=== PATIENT | female | born 1955 | race Caucasian/White ===

== ENCOUNTER 2016-09-27 17:12 | Emergency (ER) | payer OTHER ==
[~2016-09-27] VITALS: Ht 149.9 cm; Wt 89.0 kg
[~2016-09-27 17:12] MED LIST: ASPI-664 PO; ATEN-51 PO; CIPR500T4 PO; GLIP1TAB5 PO; HYDR-3498 PO; HYDR-762 PO; IBUP-1542 PO; LEVO75TA65 PO; LOSA50TA6 PO; METF500T4 PO; METR500T PO; NAPR-260 PO; OMEP20CA16 PO; ONDA4TAB35 PO; SIMV10TA PO; VALS1TAB64 PO
[2016-09-27 17:16] VITALS: Ht 149.9 cm; Wt 89.0 kg
[2016-09-27] MEDS ORDERED: morphine 4 MG/ML VIAL IV STA (19:19)
[2016-09-27] MEDS ORDERED: SOD CHLORIDE 0.9% 1,000 ML IV STA (19:19)
[2016-09-27] MEDS ORDERED: ONDANSETRON 4 MG INJ IV STA (19:19)
[2016-09-27 19:31] LABS: ADD UMIC YES; URINE BILIRUBIN (Dip) NEGATIVE (NEGATIVE); URINE BLOOD (Dip) NEGATIVE (NEGATIVE); URINE COLOR YELLOW (YELLOW); URINE GLUCOSE (Dip) NEGATIVE (NEGATIVE); URINE KETONES (Dip) TRACE (NEGATIVE); URINE LEUKOCYTE ESTERASE (Dip) TRACE (NEGATIVE); URINE NITRITE (Dip) NEGATIVE (NEGATIVE); URINE TOTAL PROTEIN (Dip) NEGATIVE (NEGATIVE); URINE UROBILINOGEN (Dip) 0.2 E.U./dL (0.1-1.0)
[2016-09-27 19:40] LABS: ADD SCAN DIFF NO
[2016-09-27 19:42] LABS: BASOPHILS % 0.4 % (0.0-2.0); EOSINOPHILS # 0.2 10^3/ul (0.0-0.5); EOSINOPHILS % 2.3 % (0.0-7.0); HEMATOCRIT 42.5 % (37.0-47.0); HEMOGLOBIN 13.8 g/dl (12.0-16.0); LYMPHOCYTES # 2.7 10^3/ul (0.8-2.9); MEAN CORPUSCULAR HEMOGLOBIN 27.4 pg (29.0-33.0); MEAN CORPUSCULAR HGB CONC 32.5 g/dl (32.0-37.0); MEAN CORPUSCULAR VOLUME 84.3 fl (82.0-101.0); MONOCYTE # 0.5 10^3/ul (0.3-0.9); MONOCYTES % 6.7 % (0.0-11.0); NEUTROPHILS % 54.5 % (39.0-77.0); PLATELET COUNT 242 10^3/UL (140-415); RED BLOOD COUNT 5.04 10^6/ul (4.20-5.40); RED CELL DISTRIBUTION WIDTH 14.1 % (11.5-14.5); WHITE BLOOD COUNT 7.4 10^3/ul (4.8-10.8)
[2016-09-27] MEDS ORDERED: LEVO125T75 PO (19:51)
[2016-09-27 19:53] LABS: ALBUMIN 4.4 g/dl (3.3-4.9); POTASSIUM 4.2 mmol/L (3.5-5.1)
[2016-09-27] MEDS ORDERED: TRIA1CAP PO (19:53)
[2016-09-27] MEDS ORDERED: OXYB5TAB7 PO (19:54)
[2016-09-27 19:55] LABS: CREATININE 0.74 mg/dl (0.44-1.00)
[2016-09-27 19:56] LABS: ALBUMIN/GLOBULIN RATIO 1.15; BILIRUBIN,INDIRECT 0.8 mg/dl (0-1.1); BILIRUBIN,TOTAL 0.8 mg/dl (0.2-1.3); CALCIUM 9.4 mg/dl (8.4-10.2); TOTAL PROTEIN 8.2 g/dl (6.1-8.1)
[2016-09-27] MEDS ORDERED: LOSA50TA6 PO (19:56)
[2016-09-27 20:01] LABS: MUCUS,URINE MODERATE
[2016-09-27 20:02] LABS: BACTERIA,URINE FEW; SQUAMOUS EPITHELIAL CELL,UR MANY; URINE RBCS 0-2 /HPF (0)
--- NOTE | 2016-09-27 20:27 | RADRPT ---
PROCEDURE: CT abdomen and pelvis without contrast. CLINICAL INDICATION: Abdominal pain, diarrhea, nausea and vomiting since 09/24/2016 TECHNIQUE: CT scan of the abdomen and pelvis without contrast was performed. Sagittal and coronal reformatted images were obtained from the axial source images. CTDI = 18.36 mGy; DLP = 1009.90 mGy- cm COMPARISON: CT abdomen and pelvis 11/10/2015 FINDINGS: Visualized lower thorax: The lung bases are clear. There is no evidence for pleural effusion. Liver, gallbladder, pancreas and spleen: Mild fatty deposition of the liver is again seen with pres erved liver contour. Hepatomegaly of 21 cm greatest dimension is demonstrated. There is no evidenc e for a liver mass or ductal dilatation. Cholecystectomy clips are again noted. No common bile norma t abnormality is demonstrated. The pancreas is unremarkable. The spleen is normal in size. Adrenal glands and genitourinary system: The adrenal glands are normal bilaterally. The kidneys are normal and size, contour and attenuation with no evidence for masses, calculi or hydronephrosis. T he ureters are unremarkable. No urinary bladder abnormality is demonstrated. The uterus and adnexa are grossly normal for the patient's age. There is no evidence of free fluid in the cul-de-sac. Gastrointestinal system: The stomach is normal in caliber with no abnormality of significance. The small bowel is normal in caliber with no ileus, obstruction or wall thickening. The appendix and s urrounding fat are within the limits of normal. Some liquid stool is present throughout the colon c orrelate with the history of diarrhea but there is no evidence of colonic wall thickening. There is no evidence for colitis or diverticulitis. Peritoneum, retroperitoneum, lymph nodes and vessels: The abdominal aorta is normal in caliber. The re is no evidence for atherosclerotic calcification. The inferior vena cava is unremarkable. Multip le prominent small bowel mesenteric lymph nodes are similar to the previous examination the largest 1.2 cm in greatest dimension with diffuse stranding of the small bowel mesenteric fat. Scattered me senteric lymphadenopathy is similar to the previous exam with some small sub centimeter left retrope ritoneal lymph nodes. The pattern is similar to the previous exam. There is no ascites. No pneumop eritoneum is present Osseous structures and musculoskeletal findings: There is no fracture, lytic or blastic lesion. Deg enerative disk disease at L5-S1 is again noted No muscular abnormality or soft tissue pathology is p resent. RPTAT:HJJR IMPRESSION: 1. Stranding of the small bowel mesentery with multiple enlarged mesenteric and left retroperitoneal lymph nodes is consistent with mesenteric panniculitis and adenitis the pattern similar to the prev ious study of 11/10/2015. 2. Liquid stool in the colon correlates with the provided history of diarrhea but there is no wall thickening to suggest colitis or enteritis. 3. Stable hepatomegaly and hepatic steatosis. 4. Cholecystectomy changes are again seen. 5. Degenerative disk disease at L5-S1 is again noted. Physician Rama Date Time Electronically viewed and signed by Physician Rama on 09/27/2016 20:26 JR/
[2016-09-27] MEDS ORDERED: HYDR-902 PO (20:43)
[2016-09-27] MEDS ORDERED: ONDA4TAB14 PO (20:43)
--- NOTE | 2016-09-27 22:17 | ERD ---
ER Documentation Chief Complaint Date/Time DATE: 09/27/16 TIME: 22:16 Chief Complaint ABDOMINAL PAIN WITH NAUSEA/VOMITING/DIARRHEA SINCE TUESDAY HPI Patient is a 52-year-old female with hypertension and diabetes who presents with abdominal pain. The patient has had abdominal pain for the past 4 days. Patient tried Pepto-Bismol as well as Mylanta and omeprazole. She has had nausea but no vomiting. She did have diarrhea. The patient has had no fevers. The patient says "I just do not feel well". She felt like she was having noises in her stomach and felt bloated. She has not called her primary doctor as of yet. Her primary doctor is Dr. Cosme Seo. ROS All systems reviewed and are negative except as per history of present illness. Medications Home Meds Active Scripts Ondansetron (Ondansetron Odt) 4 Mg Tab.rapdis, 4 MG PO Q6H Y for NAUSEA AND/OR VOMITING, #30 TAB Prov:TWAN MARIE MD 09/27/16 Hydrocodone/Acetaminophen (Pennock 10-325 Tablet) 1 Each Tablet, 1 TAB PO Q6H Y for PAIN, #7 TAB Prov:TWAN MARIE MD 09/27/16 Naproxen* (Naprosyn*) 500 Mg Tablet, 500 MG PO BID Y for PAIN AND/OR INFLAMMATION, #20 TAB Prov:SYL CHUA DO 07/11/15 Reported Medications Losartan Potassium* (Losartan Potassium*) 50 Mg Tablet, 50 MG PO DAILY, TAB 09/27/16 Oxybutynin Chloride* (Ditropan*) 5 Mg Tab, 5 MG PO DAILY, TAB 09/27/16 Triamterene/Hydrochlorothiazid (Dyazide 37.5-25 Capsule) 1 Each Capsule, 0.5 EACH PO DAILY, CAP TAKE 1/2 TAB 09/27/16 Levothyroxine Sodium* (Levothyroxine Sodium*) 125 Mcg Tablet, 125 MCG PO BEFORE BREAKFAST, #30 TAB 09/27/16 Simvastatin* (Zocor*) 10 Mg Tablet, 10 MG PO QHS, #30 TAB 11/10/15 Metformin* (Glucophage*) 500 Mg Tab, 500 MG PO WITH LUNCH DINNER, #60 TAB 11/10/15 Omeprazole* (Omeprazole*) 20 Mg Capsule.dr, 20 MG PO DAILY 10/06/11 Discontinued Reported Medications Losartan Potassium* (Losartan Potassium*) 50 Mg Tablet, 50 MG PO DAILY, TAB 11/10/15 Levothyroxine Sodium* (Levoxyl*) 75 Mcg Tablet, 75 MCG PO AC BREAKFAST, TAB 12/04/14 Atenolol* (Atenolol*) 25 Mg Tablet, 25 MG PO DAILY, TAB 12/04/14 Aspirin (Low Dose Aspirin) 81 Mg Tablet.dr, 81 MG PO DAILY 12/04/14 Glipizide-Metformin (Glipizide-Metformin) 2.5-500 Tab, 1 TAB PO BID, TAB 12/04/14 Valsartan-Hydrochlorothiazide (Diovan HCT) 160-25 Mg Tablet, 1 TAB PO DAILY, TAB 12/04/14 Discontinued Scripts Hydrocodone Bit-Acetaminophen* (Pennock*) 10-325 Mg Tablet, 1 TAB PO Q6 Y for PAIN , #10 TAB Prov:ISAAC RALPH MD 11/10/15 Ibuprofen* (Motrin*) 600 Mg Tab, 600 MG PO Q6H Y for PAIN AND OR ELEVATED TEMP, #20 TAB Prov:ISAAC RAPLH MD 11/10/15 Metronidazole* (Flagyl*) 500 Mg Tablet, 500 MG PO TID for 10 Days, TAB Prov:ISAAC RALPH MD 11/10/15 Ciprofloxacin Hcl* (Ciprofloxacin Hcl*) 500 Mg Tablet, 500 MG PO BID for 10 Days , TAB Prov:ISAAC RALPH MD 11/10/15 Hydrocodone Bit-Acetaminophen* (Pennock*) 5-325 Mg Tab, 1 TAB PO Q6 Y for PAIN, # 10 TAB Prov:SYL CHUA DO 07/11/15 Ondansetron Hcl* (Zofran* ODT) 4 mg -ODT Tab.disper, 4 MG PO Q6 Y for NAUSEA AND /OR VOMITING, #20 TAB Prov:NORA GARZA 06/16/15 Allergies Allergies: Coded Allergies: No Known Allergy (Unverified , 09/27/16) PMhx/Soc Anesthesia Reaction: No Hx Neurological Disorder: No Hx Respiratory Disorders: No Hx Cardiac Disorders: Yes (htn hld) Hx Psychiatric Problems: No Hx Miscellaneous Medical Probl: Yes (thyroid, dm) Hx Alcohol Use: No Hx Substance Use: No Hx Tobacco Use: No Smoking Status: Never smoker FmHx Family History: diabetes Physical Exam Vitals Vital Signs Date Time Temp Pulse Resp B/P Pulse Ox O2 Delivery O2 Flow Rate FiO2 09/27/16 19:21 97.8 80 18 148/83 97 Room Air 09/27/16 17:16 98.6 94 18 158/91 96 Physical Exam Const: Mild distress Head: Atraumatic Eyes: Normal Conjunctiva ENT: Normal External Ears, Nose and Mouth. Neck: Full range of motion..~ No meningismus. Resp: Clear to auscultation bilaterally Cardio: Regular rate and rhythm, no murmurs Abd: Soft, diffuse tenderness to palpation without rebound or guarding Skin: No petechiae or rashes Back: No midline or flank tenderness Ext: No cyanosis, or edema Neur: Awake and alert Psych: Normal Mood and Affect Result Diagram: 09/27/16193309/27/161933 Results 24 hrs Laboratory Tests Test 09/27/16 19:02 09/27/16 19:34 Urine Color YELLOW Urine Clarity SLIGHTLY CLOUDY Urine pH 5.5 Urine Specific Wall 1.025 Urine Ketones TRACE Urine Nitrite NEGATIVE Urine Bilirubin NEGATIVE Urine Urobilinogen 0.2 E.U./dL Urine Leukocyte Esterase TRACE Urine Microscopic RBC 0-2/HPF Urine Microscopic WBC 2-5/HPF Urine Squamous Epithelial Cells MANY Urine Bacteria FEW Urine Mucus MODERATE Urine Hemoglobin NEGATIVE Urine Glucose NEGATIVE% Urine Total Protein NEGATIVE White Blood Count 7.410^3/ul Red Blood Count 5.0410^6/ul Hemoglobin 13.8g/dl Hematocrit 42.5% Mean Corpuscular Volume 84.3fl Mean Corpuscular Hemoglobin 27.4pg Mean Corpuscular Hemoglobin Concent 32.5g/dl Red Cell Distribution Width 14.1% Platelet Count 40535^3/UL Mean Platelet Volume 11.0fl Neutrophils % 54.5% Lymphocytes % 36.0% Monocytes % 6.7% Eosinophils % 2.3% Basophils % 0.4% Nucleated Red Blood Cells % 0.0/100WBC Neutrophils # 4.010^3/ul Lymphocytes # 2.710^3/ul Monocytes # 0.510^3/ul Eosinophils # 0.210^3/ul Basophils # 0.010^3/ul Nucleated Red Blood Cells # 0.010^3/ul Sodium Level 143mmol/L Potassium Level 4.2mmol/L Chloride Level 102mmol/L Carbon Dioxide Level 28mmol/L Anion Gap 17 Blood Urea Nitrogen 16mg/dl Creatinine 0.74mg/dl Glucose Level 161mg/dl Calcium Level 9.4mg/dl Total Bilirubin 0.8mg/dl Direct Bilirubin 0.00mg/dl Indirect Bilirubin 0.8mg/dl Aspartate Amino Transf (AST/SGOT) 121IU/L Alanine Aminotransferase (ALT/SGPT) 109IU/L Alkaline Phosphatase 87IU/L Total Protein 8.2g/dl Albumin 4.4g/dl Globulin 3.80g/dl Albumin/Globulin Ratio 1.15 Lipase 61U/L Current Medications Medications (Trade) Dose Ordered Sig/Sky Route PRN Reason Start Time Stop Time Status Last Admin Dose Admin Sodium Chloride (NS) 1,000 ml @ 1,000 mls/hr Q1H STAT IV 09/27/16 19:19 09/27/16 20:18 DC 09/27/16 19:39 Morphine Sulfate (morphine) 4 mg ONCE STAT IV 09/27/16 19:19 09/27/16 19:20 DC 09/27/16 19:39 Ondansetron HCl (Zofran Inj) 4 mg ONCE STAT IV 09/27/16 19:19 09/27/16 19:20 DC 09/27/16 19:39 Procedures/MDM CT scan shows mesenteric adenitis and panniculitis per radiology. Patient is a 60-year-old female with hypertension diabetes who presents with abdominal pain, nausea, and diarrhea. The patient has no acute surgical process at this time. Patient has no obvious signs of obstruction. At this point I doubt cholecystitis, pink otitis, appendicitis, or bowel obstruction. The patient will be discharged and can follow-up with the primary doctor within 24-48 hours. The patient can return for any worsening symptoms. I will give a prescription for Pennock and Zofran. I did give the patient a copy of her laboratory studies and CT scan result prior to discharge. Departure Diagnosis: Primary Impression: Vomiting Vomiting type: unspecified Vomiting Intractability: non-intractable Nausea presence: with nausea Qualified Code: R11.2 - Non-intractable vomiting with nausea, unspecified vomiting type Additional Impression: Abdominal pain Abdominal location: generalized Qualified Code: R10.84 - Generalized abdominal pain Condition: Fair Patient Instructions: Abdominal Pain, Vomiting (6Y-Adult) Additional Instructions: Visite a singh delicia barron para un EXAMEN.Regrese a estas instalaciones si no se mejora ashley esperbamos o ashley le dijimos. TWAN MARIE MD Sep 27, 2016 22:17
[2016-09-27 23:33] VITALS: BP 133/78; PULSE 83; RESP 18; TEMP 98
== END 2016-09-27 23:34 | disposition home or self-care (01) ==
LOC: E/R 17:12
DX: R11.2 Nausea with vomiting, unspecified (principal); R10.84 Generalized abdominal pain; I10 Essential (primary) hypertension; E11.9 Type 2 diabetes mellitus without complications; Z79.82 Long term (current) use of aspirin; Z79.84 Long term (current) use of oral hypoglycemic drugs
CPT/HCPCS: 36415; 74176; 80053; 81001; 81003; 83690; 85025; 96374; 96375; J2270; J2405; J7030; Z7502

== ENCOUNTER 2016-10-22 09:25 | Day surgery (SDC) | payer OTHER ==
[~2016-10-22] VITALS: Ht 157.5 cm; Wt 89.3 kg
[~2016-10-22 09:25] MED LIST changes: -ASPI-664 PO; -ATEN-51 PO; -CIPR500T4 PO; -GLIP1TAB5 PO; -HYDR-3498 PO; -HYDR-762 PO; +HYDR-902 PO; -IBUP-1542 PO; +LEVO125T75 PO; -LEVO75TA65 PO; -METR500T PO; +ONDA4TAB14 PO; -ONDA4TAB35 PO; +OXYB5TAB7 PO; +TRIA1CAP PO; -VALS1TAB64 PO
[2016-10-22 10:24] VITALS: Ht 157.5 cm; Wt 89.3 kg
[2016-10-22] MEDS ORDERED: PROPOFOL 60 ML ONE (10:36)
[2016-10-22] MEDS ORDERED: LIDOCAINE 2% (SDV) 5 ML INJ ONE (10:36)
[2016-10-22 11:00] VITALS: BP 153/75; PULSE 67; RESP 11
--- NOTE | 2016-10-22 12:12 | GILP ---
DATE OF PROCEDURE: NAME OF PROCEDURES: 1. Esophagogastroduodenoscopy and biopsy. 2. Colonoscopy and biopsy. SURGEON: Taiwo Mazariegos MD PREOPERATIVE DIAGNOSIS: Abdominal pain, change in the bowel habit. POSTOPERATIVE DIAGNOSES: 1. Gastroesophageal reflux disease. 2. Gastritis. 3. Gastric mucosal biopsies were taken for Helicobacter pylori test. 4. Colonoscopy all the way to the cecum. 5. Internal hemorrhoids. 6. Random biopsies were taken to rule out microscopic colitis. INDICATION FOR THE PROCEDURE: Ms. Renetta Beltran is a 60-year-old female patient who had upper abdomin al pain and chronic heartburn not responding to therapy. The patient also had lower abdominal pain and a change in the bowel habits. The patient was scheduled for endoscopy and colonoscopy for [facility] evaluation. The procedures and possible complications were well explained to the patient. She understood and co nsented to the procedure. DESCRIPTION OF PROCEDURE: Under the influence of anesthesia the gastroscope was carefully introduce d into the esophagus and under direct vision it was advanced to the stomach and through the pylorus, into the duodenal bulb and descending duodenum. FINDINGS: ESOPHAGUS: The patient had gastroesophageal reflux disease. STOMACH: She had gastritis. Gastric mucosal biopsies were taken for H. pylori test. DUODENUM: Normal. The colonoscope was carefully introduced in the rectum and under direct vision it was advanced all t he way to the cecum. FINDINGS: The patient had internal hemorrhoids. Random biopsies were taken to rule out microscopic colitis. No colitis or neoplasm was identified. She tolerated the procedures very well and there was no complication from the procedures. At the en d of the procedures she was awake with stable vital signs and she was discharged home to the care of her family. IMPRESSION: 1. Gastroesophageal reflux disease. 2. Gastritis. 3. Gastric mucosal biopsies were taken for Helicobacter pylori test. 4. Colonoscopy all the way to the cecum. 5. Internal hemorrhoids. 6. Random biopsies were taken to rule out microscopic colitis. PLAN 1. Continue omeprazole. 2. Bentyl 10 mg p.o. t.i.d. p.r.n. for pain or diarrhea. 3. Await histopathology reports. 4. Recommend a referral to an oncologist further evaluation of enlarged mesenteric lymph nodes. Dictated By: TAIWO FELICIANO/PRABHJOT Conf#: [id number] DID#: [id number]
== END 2016-10-22 13:09 | disposition home or self-care (01) ==
LOC: GIL 09:25
PROVIDERS: ATTEND Internal Medicine Gastroenterology
DX: R19.4 Change in bowel habit (principal); K21.9 Gastro-esophageal reflux disease without esophagitis; K29.70 Gastritis, unspecified, without bleeding; K64.8 Other hemorrhoids; E11.9 Type 2 diabetes mellitus without complications
CPT/HCPCS: 43239; 45380; 82962; 87081; 88305; Z7610

== ENCOUNTER 2017-02-18 07:58 | Emergency (ER) | payer OTHER ==
[~2017-02-18] VITALS: Ht 165.1 cm; Wt 90.0 kg
[~2017-02-18 07:58] MED LIST changes: -HYDR-902 PO; -LOSA50TA6 PO; -ONDA4TAB14 PO; -OXYB5TAB7 PO; -TRIA1CAP PO
[2017-02-18 08:03] VITALS: Ht 165.1 cm; Wt 90.0 kg
[2017-02-18] MEDS ORDERED: KETOROLAC 30 MG INJ IM STA (08:46)
[2017-02-18 09:03] LABS: URINE BLOOD (Dip) POC Negative (NEGATIVE)
--- NOTE | 2017-02-18 09:21 | RADRPT ---
PROCEDURE: XR Lumbar Spine. CLINICAL INDICATION: Back pain. TECHNIQUE: Three views. AP, lateral and cone-down lateral view of the lumbar spine were obtained. COMPARISON: No prior studies are available for comparison. FINDINGS: There is normal stature and alignment of the vertebrae. There is no fracture. There is no lytic or blastic lesion. There are degenerative changes with small osteophytes throughout. There is disk space narrowing at L5-S1. Surgical clips are present in the right upper quadrant of the and. IMPRESSION: 1. Mild degenerative changes. 2. Prior right upper quadrant abdomen surgery. 3. Otherwise unremarkable study. RPTAT: QQ .Franck Torrez MD, MD Date Time Electronically viewed and signed by .Franck Torrez MD, on 02/18/2017 09:20 .R/
--- NOTE | 2017-02-18 09:24 | ERD ---
ER Documentation Chief Complaint Date/Time DATE: 02/18/17 TIME: 09:02 Chief Complaint Complains of back pain HPI This 61-year-old female presents the emergency department today with her granddaughter for complaints of left-sided back pain that goes down into her left leg. Patient states that she went to physical therapy for her knee on Tuesday and was doing several exercises. States that she has had pain since that time. Denies any fevers or chills, dysuria, loss of bowel or bladder control. ROS All systems reviewed and are negative except as per history of present illness. Medications Home Meds Active Scripts Prednisone* (Prednisone*) 20 Mg Tab, 40 MG PO DAILY for 4 Days, TAB Prov:DONNA DUNCAN PA-C 02/18/17 Tramadol HCl (Tramadol HCl) 50 Mg Tablet, 50 MG PO Q4 Y for PAIN, #20 TAB Prov:DONNA DUNCAN PA-C 02/18/17 Naproxen* (Naprosyn*) 500 Mg Tablet, 500 MG PO BID Y for PAIN AND/OR INFLAMMATION, #30 TAB Prov:DONNA DUNCAN PA-C 02/18/17 Naproxen* (Naprosyn*) 500 Mg Tablet, 500 MG PO BID Y for PAIN AND/OR INFLAMMATION, #20 TAB Prov:SYL CHUA DO 07/11/15 Reported Medications Levothyroxine Sodium* (Levothyroxine Sodium*) 125 Mcg Tablet, 125 MCG PO BEFORE BREAKFAST, #30 TAB 09/27/16 Simvastatin* (Zocor*) 10 Mg Tablet, 10 MG PO QHS, #30 TAB 11/10/15 Metformin* (Glucophage*) 500 Mg Tab, 500 MG PO WITH LUNCH DINNER, #60 TAB 11/10/15 Omeprazole* (Omeprazole*) 20 Mg Capsule.dr, 20 MG PO DAILY 10/06/11 Allergies Allergies: Coded Allergies: No Known Allergy (Unverified , 10/22/16) PMhx/Soc History of Surgery: Yes (COLONOSCOPY, CHOLECYSTECTOMY,TUMMY TUCK) Anesthesia Reaction: No Hx Neurological Disorder: No Hx Respiratory Disorders: No Hx Cardiac Disorders: Yes (HTN) Hx Psychiatric Problems: No Hx Miscellaneous Medical Probl: No Hx Alcohol Use: No Hx Substance Use: No Hx Tobacco Use: No Smoking Status: Never smoker Physical Exam Vitals Vital Signs Date Time Temp Pulse Resp B/P Pulse Ox O2 Delivery O2 Flow Rate FiO2 02/18/17 08:03 98.2 86 20 159/92 98 Physical Exam Const: NAD Head: Atraumatic Eyes: Normal Conjunctiva ENT: Normal External Ears, Nose and Mouth. Neck: Full range of motion..~ No meningismus. Resp: Clear to auscultation bilaterally Cardio: Regular rate and rhythm, no murmurs Abd: Soft, non tender, non distended. Normal bowel sounds Skin: No petechiae or rashes Back: Lumbar spine with midline tenderness and left-sided paraspinal tenderness. Positive straight leg raise. Pulses 2+. Distal neurovascularly intact. Ext: No cyanosis, or edema Neur: Awake and alert Psych: Normal Mood and Affect Results 24 hrs Laboratory Tests Test 02/18/17 09:09 Bedside Urine pH (LAB) 5.5 Bedside Urine Protein (LAB) Negative Bedside Urine Glucose (UA) Negative Bedside Urine Ketones (LAB) Negative Bedside Urine Blood Negative Bedside Urine Nitrite (LAB) Negative Bedside Urine Leukocyte Esterase (L Negative Current Medications Medications (Trade) Dose Ordered Sig/Sky Route PRN Reason Start Time Stop Time Status Last Admin Dose Admin Ketorolac Tromethamine (Toradol) 30 mg ONCE STAT IM 02/18/17 08:46 02/18/17 08:48 DC 02/18/17 09:02 Prednisone (Prednisone) 60 mg ONCE ONCE PO 02/18/17 10:00 02/18/17 10:01 DIAGNOSTIC IMAGING REPORT Patient: BALBINA KIM : 1955 Age: 61 Sex: F MR #: [id number] DOS: 02/18/17 0000 Ordering MD: DONNA DUNCAN PA-C Location: [facility] Room/Bed: PROCEDURE: XR Lumbar Spine. CLINICAL INDICATION: Back pain. TECHNIQUE: Three views. AP, lateral and cone-down lateral view of the lumbar spine were obtained. COMPARISON: No prior studies are available for comparison. FINDINGS: There is normal stature and alignment of the vertebrae. There is no fracture. There is no lytic or blastic lesion. There are degenerative changes with small osteophytes throughout. There is disk space narrowing at L5-S1. Surgical clips are present in the right upper quadrant of the and. IMPRESSION: 1. Mild degenerative changes. 2. Prior right upper quadrant abdomen surgery. 3. Otherwise unremarkable study. RPTAT: QQ .Franck Torrez MD, MD Date Time Electronically viewed and signed by .Franck Torrez MD, on 02/18/2017 09:20 .R/ CC: DONNA DUNCAN PA-C Procedures/MDM This is a 61-year-old female presents emergency department today complaining of left-sided back pain and pain into her left leg after doing physical therapy for her knee couple of days ago. Patient did have some midline tenderness and therefore did obtain images. Per the radiology report images of the lumbar spine show mild degenerative changes with small osteophytes throughout. There is disc space narrowing at L5 and S1. This likely the source of the patient's pain in addition to musculoskeletal strain. Patient is afebrile and otherwise well-appearing. Low suspicion for cauda equina or abscess. She has no loss of bowel or bladder control. UA is negative for infection. Low suspicion for pyelonephritis or nephrolithiasis. Patient was given Toradol and prednisone here in the emergency department and pain improved.Patient given a prescription for short course of tramadol, Naprosyn and prednisone for home At this time the patient is stable for discharge and outpatient management. Patient should follow up with their PCP in the next 1-2 days. They may return to the emergency department sooner for any persistent or worsening of symptoms. Patient understood and agreed with the plan. Departure Diagnosis: Primary Impression: Back pain Back pain location: low back pain Chronicity: acute Back pain laterality: left Sciatica presence: with sciatica Sciatica laterality: sciatica of left side Qualified Code: M54.42 - Acute left-sided low back pain with left-sided sciatica Condition: Fair DONNA DUNCAN PA-C Feb 18, 2017 09:23
[2017-02-18] MEDS ORDERED: NAPR-260 PO (09:35)
[2017-02-18] MEDS ORDERED: PRED20TA PO (09:36)
[2017-02-18] MEDS ORDERED: TRAM50TA2 PO (09:36)
[2017-02-18] MEDS ORDERED: predniSONE 20 MG TAB PO ONE (10:00)
== END 2017-02-18 10:15 | disposition home or self-care (01) ==
LOC: FTE 07:58
DX: M54.42 Lumbago with sciatica, left side (principal); I10 Essential (primary) hypertension; Z79.84 Long term (current) use of oral hypoglycemic drugs
CPT/HCPCS: 72100; 81003; 96372; J1885; J7512; Z7502

== ENCOUNTER 2017-07-18 21:00 | Observation (INO) | END 2017-07-20 18:56 | disposition home or self-care (01) ==